=== PATIENT | male | born 1980 | race African-American/Black ===

== ENCOUNTER 2022-07-01 14:58 | Emergency (ER) | payer MEDICAID, OTHER ==
[~2022-07-01] VITALS: Ht 188 cm; Wt 105.0 kg
[2022-07-01] MEDS ORDERED: HYDROCODONE/ACETAMINOPHEN 10/325MG TABLET PO ONE (17:15)
[2022-07-01] MEDS ORDERED: HYDROCODONE/ACETAMINOPHEN 10/325MG TABLET PO NR (18:45)
[2022-07-01 19:07] VITALS: BP 130/67
[2022-07-01] MEDS ORDERED: NAPR500T7 MT (20:13)
== END 2022-07-01 20:37 | disposition home or self-care (01) ==
LOC: ER 14:58
DX: S93.402A Sprain of unspecified ligament of left ankle, initial encounter (principal); W22.8XXA Striking against or struck by other objects, initial encounter; Y93.89 Activity, other specified; Y92.89 Other specified places as the place of occurrence of the external cause; Y99.8 Other external cause status
CPT/HCPCS: 29515; 73610; 99283; Z7610